=== PATIENT | male | born 1995 | race Caucasian/White ===

== ENCOUNTER 2025-02-08 22:53 | Emergency (ER) | payer OTHER, SELFPAY ==
--- NOTE | ~2025-02-08 | XR_ITS ---
CLINICAL HISTORY: chest pain 2 view chest x-ray Comparison: None provided Findings: The lungs are clear. Heart size is normal. No acute fracture. IMPRESSION: 1. No acute findings. This document has been electronically signed by: Antonio Gutierrez MD, PHD on 02/09/2025 03:20:39
[2025-02-08 22:56] VITALS: BP 160/94; PULSE 111; RESP 20; TEMP 36; O2SAT 99; BMI 61.1
--- NOTE | 2025-02-08 23:19 | ED.GENADULT ---
HPI - General Adult General Chief complaint: General Medical Stated complaint: recent labs, pre diabetic, finger numbness Time Seen by Provider: 02/08/25 23:19 Source: patient and family Mode of arrival: ambulatory Limitations: no limitations History of Present Illness ED Provider: Dr. Britta Barros HPI narrative: 29-year-old male with a history of BMI of 61, substance use, recently released from retirement after a 5 year sentence presenting with vision changes that has been ongoing since leaving retirement. Admits he was released 6 months ago and has been having what he describes as ?farsightedness?. States he feels that things are far away and ?stretched out?. Admits that he notices these episodes when he is eating, particularly when he has things that are sweet or salty. Reports symptoms that are worsening over the last 24 hours. Went to a walk-in clinic 5 days ago and was reportedly diagnosed with ?prediabetes?. States that he was not given any medications. Was told to check his blood sugars regularly which he has been doing. Admits that occasionally they will be as low as 80 and after eating will go up. He is a somewhat difficult historian and unable to give me any further details on this. reports that he has not had a single vegetable or fruit since getting back from retirement. She states he has his ?farsightedness? when he eats ?beef sticks, cheese sticks or sticky buns?. Patient admits to using PCP and cocaine. Admits that he only feels calm after he snorts cocaine or smokes Bhavesh dust. Otherwise he is feeling anxious and has a difficult time resting. States that marijuana makes him paranoid. He has not had any suicidal or homicidal ideations. Denies alcohol use. Denies associated headaches, blurry vision or double vision, numbness/tingling/weakness of the extremities, chest pain, difficulty breathing, abdominal pain, nausea, vomiting, diarrhea, urinary complaints. Related Data Allergies Allergy/AdvReac Type Severity Reaction Status Date / Time No Known Allergies Allergy Verified 02/08/25 22:59 Review of Systems Review of Systems: As per HPI, full review of systems performed and negative but for the above mentioned pertinent positives and negatives. [facility] Social History Social History Advance Directives: No Advance Directives Information Provided: No Physical Exam ED Exam Exam: GENERAL: Unkempt, no acute distress, BMI 61. SKIN: Normal skin color for ethnicity, warm, dry, no rashes noted. HEENT: Normocephalic, atraumatic, no stridor, posterior oropharynx nonerythematous, dentition intact, EOMI, PERRLA. NECK: Soft, supple, full ROM, midline structures nontender, no step-offs, no deformities, no lymphadenopathy. CHEST: Heart regular rate and rhythm, no murmurs, symmetric chest rise and fall. PULMONARY: Clear to auscultation bilaterally, no labored breathing, no wheezes/rhales/rhonchi. ABDOMINAL: Soft, protuberant, nontender, positive bowel sounds in all quadrants. : Deferred. MUSCULOSKELETAL: Normal tone, full range of motion, no deformities, no peripheral edema. NEURO: Alert and oriented x3, CN II through XII intact, equal strength and sensation bilateral upper and lower extremities, no focal neurologic deficits. PSYCHIATRIC: Anxious affect, poor eye contact, withdrawn Vital Signs: Vital Signs - 24 hr 02/08/25 22:56 02/09/25 01:31 Temperature 96.8 F 98 F Pulse Rate 111 H 99 Respiratory Rate 20 20 Blood Pressure 160/94 H 154/87 H Pulse Oximetry 99 95 Oxygen Delivery Method Room Air Room Air BMI result Body Mass Index 61.1 Medications Administered Discontinued Medications Generic Name Dose Route Start Last Admin Trade Name Freq PRN Reason Stop Dose Admin Lorazepam 1 mg 02/09/25 01:29 02/09/25 01:54 Lorazepam 1 Mg Tablet PO 02/09/25 01:30 1 mg ONCE ONE Administration Medical Decision Making Medical Decision Making MDM Narrative: 29-year-old male with a history of substance use disorder and morbid obesity presenting with vision changes that has been ongoing for several months and worsening over the last couple of days. Was seen at an urgent care and diagnosed with prediabetes but not taking any medications for this. Differential diagnosis includes glaucoma, retinal detachment, vitreous humor detachment, diabetic neuropathy or retinopathy, among many others. His blood pressures are significantly elevated in the emergency department, originally 160/94 with a heart rate of 111. Obvious concern would be for some type of vascular issue including dissection or aneurysm. Clinically though, patient appears well and has no focal neurologic deficits. His vision is perfect. He has no chest pain or shortness of breath. No back pain. I think part of his issue is obviously the PCP and cocaine use. He could be having episodes of hypertension and hypertensive urgency leading to changes in his vision though he currently has no symptoms. His diet is extremely poor. I had an extensive discussion with the patient and his regarding cessation of PCP and cocaine to help with the symptoms. It is likely that he has underlying ADHD if he starts to feel calm when using stimulants like PCP and cocaine. He could probably benefit from something like Adderall or Ritalin but with his substance use history I am not sure this is a good idea. Gave him a dose of Ativan here in the emergency department after his workup turned out relatively negative. He has no EKG changes, widening of the mediastinum on the chest x-ray, elevated cardiac enzymes or electrolyte abnormalities. He is not currently in DKA, though this was considered. Using shared decision making, plan for discharge home and continued outpatient treatment.? Patient understands and agrees with plan for discharge.? Discharged home in stable condition. Provided with resources for primary care and encouraged to return to the hospital should he to seek treatment for his cocaine/PCP use disorder. Differential Diagnosis Differential Diagnoses: The differential diagnosis associated with the presentation includes (as above) Admission/Observation Consideration of admission/observation: Escalation of care including admission/observation considered Lab Data MDM Lab Attestation statement: I reviewed the patient's lab results. 02/08/25 23:37 02/08/25 23:37 Labs: Lab Results 02/08/25 02/08/25 02/09/25 Range/Units 23:37 23:42 00:45 WBC 11.5 H (4.8-10.8) X10*3/uL RBC 5.35 (4.60-5.80) X10*6/uL Hgb 14.6 (14.0-18.0) g/dl Hct 43.7 (42.0-52.0) % MCV 81.7 (80.0-98.0) fL MCH 27.3 (27.0-33.0) pg MCHC 33.4 (31.0-36.0) g/dl RDW 13.6 (11.0-16.0) % Plt Count 388 (160-400) X10*3/uL MPV 9.0 L (9.4-12.4) fL Immature Gran % (Auto) 0.3 (0.0-0.4) % Neut % (Auto) 63.6 (45-73) % Lymph % (Auto) 28.0 (20-40) % [place] % (Auto) 6.1 (2-11) % Eos % (Auto) 1.5 (0-4) % Baso % (Auto) 0.5 (0-2) % Lymph # (Auto) 3.2 (1.2-4.9) X10*3/uL [place] # (Auto) 0.7 (0.1-1.2) X10*3/uL Eos # (Auto) 0.2 (0.0-0.4) X10*3/uL Baso # (Auto) 0.1 (0.0-0.2) X10*3/uL Abs Immat Gran (auto) 0.04 H (0.00-0.03) X10*3/uL Absolute Neuts (auto) 7.3 (2.0-8.3) x10*3/uL Absolute Nucleated RBC 0.000 (0.0-0.012) X10*3/uL Nucleated RBC % (auto) 0.0 (0.0-0.2) /100WBC VBG pH 7.45 H (7.32-7.43) VBG pCO2 43 mmHg VBG pO2 91 mmHg VBG HCO3 30 H (22-26) mmol/L VBG O2 Saturation 98.0 % VBG Base Excess 6.0 mmol/L Sodium 141 (135-145) mmol/L Potassium 3.9 (3.3-5.1) mmol/L Chloride 105 (96-108) mmol/L Carbon Dioxide 25 (22-29) mmol/L Anion Gap 15 (12-20) BUN 13 (9-16) mg/dL Creatinine 0.82 (0.5-1.4) mg/dL Estim Creat Clear Calc 211.3 Estimated GFR > 60 Random Glucose 104 (60-115) mg/dL Calcium 9.2 (8.4-10.2) mg/dL Magnesium 2.1 (1.6-2.6) mg/dL Total Bilirubin 0.3 (0.0-1.0) mg/dL AST 43 H (5-37) U/L ALT 42 H (0-40) U/L Alkaline Phosphatase 72 (39-117) U/L Troponin I High Sens < 2.7 (<3.5-35.0) ng/L Total Protein 7.2 (6.5-8.0) g/dL Albumin 4.1 (3.5-5.0) g/dL Beta-Hydroxybutyrate 0.10 (0.02-0.27) mmol/L Urine Opiates Screen Not Detected (Not Detect) Ur Buprenorphine Scrn Not Detected (Not Detect) ng/mL Ur Oxycodone Screen Positive H (Not Detect) ng/mL Urine Methadone Screen Not Detected (Not Detect) ng/mL Urine Fentanyl Screen Not Detected (Not Detect) Ur Barbiturates Screen Not Detected (Not Detect) Ur Phencyclidine Scrn POSITIVE H (Not Detect) Ur Amphetamines Screen Not Detected (Not Detect) U Benzodiazepines Scrn Not Detected (Not Detect) Urine Cocaine Screen POSITIVE H (Not Detect) U Marijuana (THC) Screen Not Detected (Not Detect) Independent Interpretation I performed an independent interpretation of an: EKG and Plain X-Ray Interpretation: My independent interpretation of the ECG reveals normal sinus rhythm with rate of 97, normal axis, normal intervals, no ST elevations or depressions to suggest ischemic changes, no previous for comparison My independent interpretation of the chest x-ray reveals no consolidations, pulmonary edema, pleural effusion, pneumothorax, obvious bony abnormalities. Radiology Impression Discussion of test interpretation with radiology: I have reviewed the radiologist's reading. Independent Historian Clinical information obtained from an independent historian. History obtained from or confirmed by: Spouse Chronic Conditions Patient?s care impacted by: Other (Morbid obesity) Social Determinants Patient?s care significantly limited by Social Determinants of Health including: Other Social Determinant of Health Discharge Plan Discharge Clinical Impression: PCP (phencyclidine) abuse, Cocaine abuse, Anxiety, Hypertensive urgency, Alteration in vision Patient Disposition: Home, Self-Care Instructions: Low-Sodium Diet (ED), Hypertensive Crisis (ED), Anxiety (ED) Additional Instructions: Try to avoid using stimulants such as cocaine and PCP as these can make your blood pressure high and can cause changes in your vision. You should also try to avoid salty foods and attempt a low-salt diet. I think this will really help your symptoms. Ultimately, you need to check your blood pressure more regularly. You can buy a blood pressure cuff at any medical supply store or pharmacy. Take your blood pressure at the same time every day and keep a log. If you need help with your addictions, you can always come to the emergency department. When you are ready to stop using, the emergency department is always open and we are willing to help you. If you do not have a primary care physician, please call the [facility] at [phone] to establish a new primary care physician. While waiting to establish a new primary care physician, you can call our Walk[facility] at [phone] for non-emergency needs. Print Language: [place] Citizen
--- NOTE | 2025-02-08 23:22 | ECG_ITS ---
Test Reason : dizziness Blood Pressure : */* mmHG Vent. Rate : 97 BPM Atrial Rate : 97 BPM P-R Int : 166 ms QRS Dur : 90 ms QT Int : 344 ms P-R-T Axes : 23 55 -1 degrees QTcB Int : 436 ms Normal sinus rhythm Normal ECG No previous ECGs available Referred By: Britta Barros Electronically Signed By: SALBADOR CASTRO MD
--- OUTSIDE RECORDS SUMMARY | 2025-02-08 23:33 | XMS_ITS ---
Author Name [facility] Organization Unknown Care Team Organization Name Specialty Phone Email Start Date End Da te [facility] 02/28/2022 4
[2025-02-08 23:43] LABS: Hematocrit 43.7 % (42.0-52.0); Hemoglobin 14.6 g/dl (14.0-18.0); Imm Gran Abs Auto 0.04 X10*3/uL (0.00-0.03); Imm Gran Pct Auto 0.3 % (0.0-0.4); Lymphocytes Absolute Auto 3.2 X10*3/uL (1.2-4.9); MANUAL DIFF FLAG NO; Mean Corpuscular HGB Conc 33.4 g/dl (31.0-36.0); Mean Corpuscular Hemoglobin 27.3 pg (27.0-33.0); Mean Corpuscular Volume 81.7 fL (80.0-98.0); NRBC Abs Auto 0.000 X10*3/uL (0.0-0.012); NRBC Pct Auto 0.0 /100WBC (0.0-0.2); Platelet Count 388 X10*3/uL (160-400); Red Blood Count 5.35 X10*6/uL (4.60-5.80); White Blood Count 11.5 X10*3/uL (4.8-10.8)
[2025-02-08 23:44] LABS: Venous Blood Gas Refer to POC result
[2025-02-08 23:46] LABS: VBG HCO3 30 mmol/L (22-26); VBG O2 % Saturation 98.0 %
[2025-02-09 00:05] LABS: Alanine Aminotransferase 42 U/L (0-40); Albumin Level 4.1 g/dL (3.5-5.0); Alkaline Phosphatase 72 U/L (39-117); Anion Gap 15 (12-20); Aspartate Amino Transferase 43 U/L (5-37); Blood Urea Nitrogen 13 mg/dL (9-16); Calcium 9.2 mg/dL (8.4-10.2); Carbon Dioxide 25 mmol/L (22-29); Chloride 105 mmol/L (96-108); Creatinine Clr Calc Pharmacy 211.3; Estimated Glomerular Filt Rate > 60; Magnesium 2.1 mg/dL (1.6-2.6); Potassium 3.9 mmol/L (3.3-5.1); Sodium 141 mmol/L (135-145); Total Protein 7.2 g/dL (6.5-8.0); Troponin-I High Sensitivity < 2.7 ng/L (<3.5-35.0)
[2025-02-09 01:02] LABS: Cannabinoid Screen Urine Not Detected (Not Detect)
[2025-02-09 01:31] VITALS: BP 154/87; PULSE 99; RESP 20; TEMP 36.6; O2SAT 95
[2025-02-09 02:21] VITALS: BP 154/87; PULSE 99; RESP 20; TEMP 36.6; O2SAT 95
== END 2025-02-09 02:22 | disposition home or self-care (01) ==
PROVIDERS: Emergency Provider Emergency Medicine; PCP Internal Medicine
DX: I16.0 Hypertensive urgency (principal); F41.1 Generalized anxiety disorder; R20.0 Anesthesia of skin; H53.8 Other visual disturbances; F14.10 Cocaine abuse, uncomplicated; F16.10 Hallucinogen abuse, uncomplicated; R42 Dizziness and giddiness; R07.9 Chest pain, unspecified
CPT/HCPCS: 36415; 71046; 80053; 80307; 82010; 82803; 83735; 84484; 85025; 93005; 99284

== ENCOUNTER → 2025-02-08 23:22 | Outpatient (BNV) | payer OTHER, SELFPAY | PROVIDERS: Emergency Provider Emergency Medicine; PCP Internal Medicine; Visit Provider Internal Medicine Cardiovascular Disease | DX: R42 Dizziness and giddiness (principal) | CPT/HCPCS: 93010 ==

== ENCOUNTER → 2025-02-09 01:45 | Outpatient (BNV) | payer OTHER, SELFPAY | PROVIDERS: Emergency Provider Emergency Medicine; PCP Internal Medicine; Visit Provider General Practice | DX: R07.9 Chest pain, unspecified (principal) | CPT/HCPCS: 71046 ==